=== PATIENT | male | born 1980 | race Caucasian/White ===

== ENCOUNTER 2016-11-14 08:34 | Emergency (ER) | payer MEDICAID ==
[~2016-11-14] VITALS: Ht 165.1 cm; Wt 82.0 kg
[~2016-11-14 08:34] MED LIST: PENI500T PO
[2016-11-14 08:37] VITALS: Ht 165.1 cm; Wt 82.0 kg
[2016-11-14] MEDS ORDERED: IBUPROFEN 800 MG TAB PO ONE (09:30)
--- NOTE | 2016-11-14 09:40 | RADRPT ---
PROCEDURE: XR Chest. CLINICAL INDICATION: Chest wall pain TECHNIQUE: Single frontal view of the chest was obtained COMPARISON: None FINDINGS: No pleural effusion or pneumothorax. No consolidation. Unremarkable cardiomediastinal silhouette. No acute osseous abnormality. IMPRESSION: No acute cardiopulmonary disease. RPTAT: EE Wilder Pa Physician Date Time Electronically viewed and signed by Wilder Pa Physician on 11/14/2016 09:40 /
[2016-11-14] MEDS ORDERED: NAPR-260 PO (09:46)
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
== END 2016-11-14 10:16 | disposition home or self-care (01) ==
LOC: FTE 08:34
DX: R07.89 Other chest pain (principal)
CPT/HCPCS: 71010; 93005; Z7502; Z7610